=== PATIENT | female | born 1965 | race Caucasian/White ===

== ENCOUNTER 2019-07-01 21:53 | Emergency (ER) | payer SELFPAY ==
--- NOTE | 2019-07-01 23:28 | CT ---
CT OF THE THORAX WITHOUT IV CONTRAST INDICATION: Chest injury COMPARISON: No relevant prior studies are available. FINDINGS: The lack of IV contrast limits evaluation of the vasculature and heart. LUNGS: There is severe emphysema. There are areas of reticular nodular opacities involving both lower lobes. There is a 5 mm pulmonary nodule in the right upper lobe on image 16 of series 3. There is a 3.8 mm pulmonary nodule within the left upper lobe on image 24 series 3. There is a 3 mm pulmonary nodule left upper lobe on image 30 of series 3. There is a sub-4 mm pulmonary nodule in the right upper lobe on image 22 of series 3. Pleural spaces: Clear Lymph nodes: No pathologically enlarged lymph nodes. Heart and great vessels: The lack of IV contrast limits interrogation of the heart and great vessels. There is scattered thoracic and coronary artery calcifications. Upper abdomen: Visualized aspects of the upper abdomen appear within normal limits. Osseous structures: No acute osseous abnormality. IMPRESSION: 1. Severe emphysema. 2. Areas of reticular nodularity involving both lower lobes is suspicious for bronchiolitis. Short-te rm CT follow-up in 2-3 weeks following therapy is recommended to document clearance. 3. Additional smaller scattered pulmonary nodules throughout both lungs.
[2019-07-02] MEDS ORDERED: HYDROcodone/Acetaminophen 10/325 mg Tablet ONE (00:09)
== END 2019-07-02 00:32 | disposition home or self-care (01) ==
LOC: MADERS 21:53
DX: S29.011A Strain of muscle and tendon of front wall of thorax, initial encounter (principal); J22 Unspecified acute lower respiratory infection; X50.9XXA Other and unspecified overexertion or strenuous movements or postures, initial encounter
CPT/HCPCS: 71250

== ENCOUNTER 2023-03-13 21:58 | Emergency (ER) | payer SELFPAY ==
[2023-03-13] MEDS ORDERED: Boostrix 0.5 ML (Tdap) VIAL (>/=7 yrs of age) ONE (22:48)
[2023-03-13] MEDS ORDERED: HYDROcodone/Acetaminophen 5/325 mg Tablet ONE (22:48)
== END 2023-03-13 22:35 | disposition home or self-care (01) ==
LOC: MADERS 21:58
DX: S22.31XA Fracture of one rib, right side, initial encounter for closed fracture (principal); J44.9 Chronic obstructive pulmonary disease, unspecified; F17.290 Nicotine dependence, other tobacco product, uncomplicated; W19.XXXA Unspecified fall, initial encounter; Y93.89 Activity, other specified
CPT/HCPCS: 90471; 90715